=== PATIENT | female | born 1995 | race Caucasian/White ===

== ENCOUNTER 2016-08-16 03:26 | Emergency (ER) | payer OTHER ==
[~2016-08-16] VITALS: Ht 157.5 cm; Wt 59.1 kg
[2016-08-16 03:31] VITALS: TEMP 36.4; Ht 157.5 cm; Wt 59.1 kg
[2016-08-16] MEDS ORDERED: VENL1CAP92 PO (04:20)
[2016-08-16] MEDS ORDERED: BCPILLS PO (04:20)
--- NOTE | 2016-08-16 06:39 | DIAGNOSTIC IMAGING REPORT ---
HEAD CT NONCONTRAST CT DOSE: HISTORY: head injury TECHNIQUE: Multiaxial CT images of the head were performed without the use of intravenous contrast. Automated exposure control was utilized for this study. Comparison: None. Findings: The paranasal sinuses and mastoid air cells are clear. The calvarium and skull base are intact. The ventricles and sulci are within normal limits. There is no mass, hematoma, midline shift, or acute infarct. Impression: No acute intracranial abnormality. Electronically signed by: Micah Cottrell M.D. 08/16/2016 6:37 AM Dictated Date/Time: 08/16/2016 6:35 AM
--- NOTE | 2016-08-16 06:43 | DIAGNOSTIC IMAGING REPORT ---
CERVICAL SPINE CT CT DOSE: 982.64 mGy.cm HISTORY: pain s/p fall TECHNIQUE: Multiaxial CT images of the cervical spine were performed and reformatted in the sagittal and coronal plane without the use of contrast. COMPARISON: None. FINDINGS: C1 and the skull base are fused. This likely accounts for the mild widening at the C1-C2 interval which measures up to 3 mm. Apparent basilar invagination is also likely due to the fusion. The cervical medullary junction is not significantly narrowed. There is mild reversal of the normal lordotic curvature of the cervical spine. No prevertebral soft tissue swelling to suggest an acute injury. No fracture or subluxation. IMPRESSION: 1. No fracture or subluxation within the cervical spine. 2. 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 This likely accounts for the mild widening at the C1-C2 interval appear and basilar margination. Electronically signed by: Micah Cottrell M.D. 08/16/2016 6:42 AM Dictated Date/Time: 08/16/2016 6:37 AM
--- NOTE | 2016-08-16 07:49 | EMERGENCY ROOM VISIT NOTE ---
History First contact with patient: 03:51 Chief Complaint: HEAD INJURY (MINOR) Stated Complaint: FALL,HEAD INJURY,GLASS IN HAND History of Present Illness The patient is a 21 year old female who presents to the Emergency Department by private vehicle with her friends for evaluation after sustaining a head injury. The patient was reportedly on a friend's back when she fell posteriorly striking the back of her head on the ground. She did not lose consciousness. They report that she was acting funny afterwards and was complaining some vision issues as well as some confusion. The patient reports a total headache describing her pain as a "migraine". She reports no history of migraines. She rates her current discomfort as 0/10. She denies any neck pain, slurred speech , facial droop, unilateral weakness/numbness, chest pain, upper back pain, abdominal pain, nausea, or vomiting. She reports no history of head injuries. She does not utilize blood thinners. She is tried nothing for her symptoms to this point. The patient does admit to drinking alcohol today. Review of Systems A complete 10-point Review of Systems was discussed with the patient, with pertinent positives and negatives listed in the History of Present Illness. All remaining Review of Systems questions can be considered negative unless otherwise specified. Social History Smoking Status: Never Smoker Smokeless Tobacco Use: No Alcohol Use: occasionally Drug Use: none Marital Status: single Housing Status: lives with roommate Occupation Status: [employer] student Current/Historical Medications Scheduled Control Pills ( Control Pills), 1 TAB PO DAILY Venlafaxine Hcl (Effexor Xr), 1 CAP PO DAILY Allergies Coded Allergies: Cat Dander (Verified Allergy, Unknown, SHORTNESS OF BREATH, 08/16/16) Physical Exam Vital Signs Date Time Temp Pulse Resp B/P Pulse Ox O2 Delivery O2 Flow Rate FiO2 08/16/16 08:59 100 16 119/71 97 Room Air 08/16/16 07:49 94 18 121/70 96 Room Air 08/16/16 06:06 71 16 118/64 99 Room Air 08/16/16 05:10 63 16 112/61 99 Room Air 08/16/16 03:31 36.4 94 18 129/83 100 Room Air Pain Rating (0-10): 0 Physical Exam VITAL SIGNS - Vital signs and nursing notes were reviewed. GENERAL - 21-year-old female appearing her stated age. Communicates well with provider and answers questions appropriately. HEAD - Normocephalic, Atraumatic. No Carson's Sign or Raccoon's Eyes. No depressed skull fractures palpable. EYES - PERRL with EOMI bilaterally. Without subconjunctival hemorrhage. Palpebral conjunctiva pink and moist with no injection. EARS - No deformities of external structures noted on gross examination bilaterally. No hemotympanum present. No tympanic perforation noted. Handle of malleus, umbo, cone of light, pars tensa/flaccid all easily visualized. NOSE - Midline and without cyanosis. No epistaxis or clear watery discharge noted. Septum midline without deviation. No septal hematoma noted. No overlying ecchymosis noted. MOUTH/OROPHARYNX - Without perioral cyanosis. Tongue midline with equal elevation of palate bilaterally. No blood noted in the oropharynx. No tonsillar hypertrophy, erythema, or exudates noted. No dental fractures noted. NECK - FROM assessed. No nuchal rigidity. No tenderness to palpation over the cervical spinous processes. No cervical paraspinal muscle tenderness noted. LUNGS - Chest wall symmetric without accessory muscle use, intercostals retractions, or central cyanosis. Normal vesicular breath sounds CTA B/L. No wheezes, rales, or rhonchi appreciated. CARDIAC - RRR with S1/S2. No murmur, rubs, or gallops appreciated. EXTREMITIES - No gross deformities noted of the extremities. +3/5 radial and dorsalis pedis pulses palpated throughout. FROM with no tremors, fasciculations , or clonus noted on PROM throughout. +5/5 strength noted in UE/LE bilaterally. NEUROLOGIC - Cranial nerves II through XII grossly intact. Sensory intact to light touch throughout. Patellar reflexes +2/4. Patient able to perform rapid alternating movements appropriately. PSYCH - A&Ox3 and cooperates fully with examiner. Pt is very pleasant and interacts well with examiner. Medical Decision & Procedures ER Provider Diagnostic Interpretation: Radiological imaging and reports were reviewed by myself. Radiologist's Interpretation as follows: HEAD CT NONCONTRAST CT DOSE: HISTORY: head injury TECHNIQUE: Multiaxial CT images of the head were performed without the use of intravenous contrast. Automated exposure control was utilized for this study. Comparison: None. Findings: The paranasal sinuses and mastoid air cells are clear. The calvarium and skull base are intact. The ventricles and sulci are within normal limits. There is no mass, hematoma, midline shift, or acute infarct. Impression: No acute intracranial abnormality. HEAD CT NONCONTRAST CT DOSE: HISTORY: head injury TECHNIQUE: Multiaxial CT images of the head were performed without the use of intravenous contrast. Automated exposure control was utilized for this study. Comparison: None. Findings: The paranasal sinuses and mastoid air cells are clear. The calvarium and skull base are intact. The ventricles and sulci are within normal limits. There is no mass, hematoma, midline shift, or acute infarct. Impression: No acute intracranial abnormality. CERVICAL SPINE MRI HISTORY: Fall. Neck pain. f/u from ct c-spine TECHNIQUE: Multiplanar multisequence MRI of the cervical spine was performed without the use of contrast. COMPARISON STUDY: Cervical spine CT 08/16/2016. FINDINGS: Minimal levoscoliosis of the cervical spine which may be positional. There is mild reversal of the normal lordotic curvature. Mild motion artifact within the cervical spine. Mild disc desiccation at C3-C4 and C4-C5. No significant disc space narrowing. There is again noted fusion of the skull base and C1. The atlantodens interval is slightly widened 3 mm. However, there is no associated edema to suggest acute injury. Therefore, this is likely congenital. The apparent basilar invagination is also likely due to the fusion. There is mild mass effect along the anterior cervicomedullary junction from the adjacent odontoid. The visualized posterior fossa is unremarkable. The cervical spinal cord is normal in course, caliber, and signal intensity. No soft tissue edema within the cervical spine to suggest ligamentous injury. Small broad-based posterior disc bulges at C3-C4 and C4-C5 without significant central canal or neural foraminal narrowing. No disc herniations identified. IMPRESSION: 1. No acute fracture or subluxation within the cervical spine. No acute injury. 2. 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 This results in the apparent basilar invagination with mild mass effect of the odontoid with the adjacent anterior cervicomedullary junction. 3. Small broad-based posterior disc bulges at C3-C4 and C4-C5 without significant central canal or neural foraminal narrowing. ED Course Patient was seen and evaluated by myself. CT the head and cervical spine were obtained. I was contacted by [facility] radiologist for concerns of structural abnormality of the cervical spine versus anatomic variant. Regardless, and MRI was suggested. MRI of the cervical spine was obtained after discussion with the patient. MRI findings as above. Imaging studies were reviewed with the patient who acknowledges understanding. She declines anything for pain at this time. She was encouraged to follow-up with her primary care provider from today 's visit. She was educated on worrisome symptoms for return visit to the emergency department. Patient discharged home in good condition. Medical Decision Given the patient's presentation and stated complaint, I did elect to perform the above-mentioned workup. The patient presents complaining of headache after sustaining a fall from height. She was intoxicated. Clinically, the patient has no focal neurological deficits. She does appear somewhat intoxicated, but not significant and otherwise. CT of the head and neck were obtained. MRI rules out any significant acute findings of cervical spine. The patient will follow-up with her primary care provider or return for any changing/worsening symptoms. Patient discharged home in good condition. In the evaluation and treatment of this patient, the following differential diagnoses were considered: Concussion, Contrecoup Injury, Brain Tumor, Depression, Encephalitis, Hypothyroidism, Meningitis, CVA, TIA, Migraine, Cluster Headache, Intracranial Abnormality, Intracranial Hemorrhage, Subdural Hematoma, Subarachnoid Hemorrhage, Hydrocephalus. Impression Primary Impression: Closed head injury Departure Information Dispostion Home / Self-Care Condition GOOD Referrals No Doctor, Assigned (PCP) Patient Instructions ED Concussion, [facility] Additional Instructions You have been treated in the Emergency Department for a Closed Head Injury. CT Scan of your head/brain demonstrated no acute bleeding or other abnormalities. This does not completely rule out the risk for future damage to the brain. For pain control, you can use the following [id number] medicines (if >12 yo): - Regular strength (325mg/tab) Tylenol (acetaminophen) 2 tabs every 4-6 hours as needed. Do not exceed 12 tablets in a 24 hour period. Avoid taking more than 4 grams (4000 mg) of Tylenol per day. This includes any other sources of acetaminophen you may take on a regular basis. - Regular strength (200 mg/tab) Advil (ibuprofen) 1-2 tabs every 4-6 hours as needed. Do not exceed a dose of 3200 mg per day. You should relax in a quiet, dark place for the rest of the day. Avoid any possible triggers including: cigarette smoke, caffeine, nicotine, chocolate, wine, beer, loud noises or music, or bright lights. You should schedule a follow-up appointment in 2-3 days with your Primary Care Provider or established Neurologist for further evaluation and treatment of your Headache. 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 You should fully comply with their standard protocol regarding head injuries. Your [employer] Department Manager OR Primary Care Provider will have the final say in your return to athletic play. This timeframe should be AT LEAST 1 week AFTER the date of last symptoms experienced! This is ESSENTIAL to allow for adequate brain healing time and for reduced risk of re-injury. Return to the Emergency Department if your current symptoms worsen despite treatment course outlined above, or if you develop any of the following symptoms : intractable pain despite aforementioned treatment course, visual disturbances , loss of vision, unilateral weakness or facial drooping, slurring of speech, loss of coordination, or loss of consciousness. Problem Qualifiers Primary Impression: Closed head injury Encounter type: initial encounter Qualified Codes: S09.90XA - Unspecified injury of head, initial encounter
--- NOTE | 2016-08-16 08:33 | DIAGNOSTIC IMAGING REPORT ---
CERVICAL SPINE MRI HISTORY: Fall. Neck pain. f/u from ct c-spine TECHNIQUE: Multiplanar multisequence MRI of the cervical spine was performed without the use of contrast. COMPARISON STUDY: Cervical spine CT 08/16/2016. FINDINGS: Minimal levoscoliosis of the cervical spine which may be positional. There is mild reversal of the normal lordotic curvature. Mild motion artifact within the cervical spine. Mild disc desiccation at C3-C4 and C4-C5. No significant disc space narrowing. There is again noted fusion of the skull base and C1. The atlantodens interval is slightly widened 3 mm. However, there is no associated edema to suggest acute injury. Therefore, this is likely congenital. The apparent basilar invagination is also likely due to the fusion. There is mild mass effect along the anterior cervicomedullary junction from the adjacent odontoid. The visualized posterior fossa is unremarkable. The cervical spinal cord is normal in course, caliber, and signal intensity. No soft tissue edema within the cervical spine to suggest ligamentous injury. Small broad-based posterior disc bulges at C3-C4 and C4-C5 without significant central canal or neural foraminal narrowing. No disc herniations identified. IMPRESSION: 1. No acute fracture or subluxation within the cervical spine. No acute injury. 2. 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 This results in the apparent basilar invagination with mild mass effect of the odontoid with the adjacent anterior cervicomedullary junction. 3. Small broad-based posterior disc bulges at C3-C4 and C4-C5 without significant central canal or neural foraminal narrowing. Electronically signed by: Micah Cottrell M.D. 08/16/2016 8:32 AM Dictated Date/Time: 08/16/2016 8:25 AM
[2016-08-16 08:59] VITALS: BP 119/71; PULSE 100; O2SAT 97
== END 2016-08-16 09:01 | disposition home or self-care (01) ==
LOC: C.EDB 03:28
DX: S09.90XA Unspecified injury of head, initial encounter (principal); W18.09XA Striking against other object with subsequent fall, initial encounter